=== PATIENT | male | born 1985 | race Caucasian/White ===

== ENCOUNTER 2022-09-26 09:05 | Emergency (ER) | payer SELFPAY ==
[~2022-09-26] VITALS: Ht 175.3 cm; Wt 86.3 kg
[2022-09-26] MEDS ORDERED: KEFLEX500 MG PO (12:21)
[2022-09-26 12:43] VITALS: BP 138/78
== END 2022-09-26 12:53 | disposition home or self-care (01) | DRG 914 ==
LOC: ED 09:05
PROC: 0HCHXZZ Extirpation of Matter from Right Upper Leg Skin, External Approach (ICD-10-PCS; principal; 2022-09-26)
DX: S71.141A Puncture wound with foreign body, right thigh, initial encounter (principal); W45.8XXA Other foreign body or object entering through skin, initial encounter; F17.210 Nicotine dependence, cigarettes, uncomplicated